=== PATIENT | female | born 1985 | race Caucasian/White ===

== ENCOUNTER 2019-05-27 09:30 | Outpatient (CLI) | payer OTHER, SELFPAY ==
[2019-05-27] VITALS (9 sets, daily range): BP systolic 121–144; BP diastolic 81–95; PULSE 58–69; RESP 16; TEMP 36.7; O2SAT 96–100
--- NOTE | 2019-05-27 09:32 | DI.RAD.S_ITS ---
PROCEDURE: PAIN C/T FACET INJ/BLK 1ST L INDICATIONS: SPONDYLOSIS FINDINGS: Fluoroscopic spot filming was performed to verify placement of spinal needles at the C5-C6, C6-C7 level(s), as labeled on the films. Appropriate location(s) of the needle tip(s) was confirmed by injection of iodinated contrast. Dictated by: Mohan Woods M.D. on 05/27/2019 at 12:23 Approved by: Mohan Woods M.D. on 05/27/2019 at 12:23
[2019-05-27] MEDS: MIDAZOLAM 5 MG/5 ML VIAL IV (11:19)
[2019-05-27] MEDS: fentaNYL 100 MCG/2 ML INJ 50 MCG IV (11:19)
[2019-05-27] MEDS: BUPIVACAINE 0.5% (PF) VIAL 2 ML INJ (11:29)
[2019-05-27] MEDS: IOPAMIDOL 15 ML VIAL 3 ML INJ (11:29)
[2019-05-27] MEDS: DEXAMETHASONE 10 MG/ML VIAL 20 MG INJ (11:30)
--- NOTE | 2019-05-27 11:31 | PC.NURSE ---
ASSISTING PT OFF TABLE AND TRANSPORTING TO POST PROC AREA IN STABLE CONDITION. PASSING RN CARE OF PT OFF TO RORY Paulino RN.
--- NOTE | 2019-05-27 11:37 | P.PCN_ITS ---
Procedures Date/Time Date of procedure: 05/27/19 Time of procedure: 11:37 General Procedure description: PREOP DIAGNOSIS 1. FACET ARTHROPATHY 2. AXIAL NECK PAIN POST OP DIAGNOSIS 1. FACET ARTHROPATHY 2. AXIAL NECK PAIN PROCEDURES 1. FLUOROSCOPICALLY GUIDED, CONTRAST-CONTROLLED RIGHT C5/6 AND C6/7 FACET JOINT INJECTIONS WITH CONSCIOUS SEDATION. PHYSICIAN: Gigi Ly, DO INDICATIONS Maria R is referred by Dr. Alexander for treatment of Axial Neck Pain DESCRIPTION OF PROCEDURE Fluoroscopically guided, contrast-controlled right C5/6 and C6/7 facet joint injections with conscious sedation. Following review of allergy and review of potential side effects and complications, including, but not necessarily limited to, infection, allergic reaction, local tissue breakdown, stroke, temporary or permanent nerve injury and paralysis, the patient indicated that the patient understood and agreed to proceed. An informed consent document was signed by the patient, witnessed by a nurse, and placed in the patient's chart. Additionally, other treatment options including medications, modalities, and physical therapy were reviewed with the patient. After review of previous anaesthesic history and IV conscious sedation the pa tient was deemed safe to proceed with todays procedure with IV conscious sedation as ASA class II designation. Safety time-out was performed to confirm patient ID, procedure to be performed and site of procedure. IV sedation was accomplished with a combination of 1mg of Versed and 50mcg of Fentanyl was administered by the RN after DO order, titrated to patient comfort during the course of the procedure while the patient remained responsive to all verbal commands In the prone position, following sterile prep and drape of the cervical spine region, the posterior aspect of the right C5/6 and C6/7 facet joints were identified fluoroscopically. The skin was anesthetized via a 25-gauge 1.5-inch needle with 1% lidocaine solution into the corresponding facet joints. At this point, a 25-gauge 2.5-inch spinal needle was atraumatically introduced and advanced under fluoroscopic guidance into the corresponding facet joints. Following negative aspiration, injections of approximately 0.2-cc of Isovue 200 confirmed interarticular placement without vascular uptake. At this point, a total of 1 cc including 0.5 cc or 5 mg of dexamethasone combined with 0.5 cc of 0.5% marcaine solution was injected without complication into each of the corresponding facet joints. The procedure tolerated the procedure well without signs or symptoms of complications prior to transfer to the recovery area continued monitoring without incident. The patient was then transferred to the recovery area where they were observed for an appropriate period of time after the injection. The patient reported a VAS score of 7 prior to the procedure and a post- procedure VAS of 0. Total Fluoroscopy Time: 14 seconds Total Conscious Sedation Time: 24 min POST OP INSTRUCTIONS They were provided a Pain Log to continue to record their response to the target-specific procedure prior to their follow-up visit with their referring physician. Additionally, specific post-injection care instructions and a c ontact number to our office were provided if concerns arise regarding possible complications associated with the procedure are suspected. Gigi Ly DO Complications: none
--- NOTE | 2019-05-27 12:29 | PC.NURSE ---
Post procedure discharge note: Patient arrived at 1140 via wheelchair. Alert and able to transfer from w/c to recliner with stand by assist. Handoff report received from Delores Degroot RN. VSS on arrival. No complaints of pain, unusual numbness or tingling. Discharge instructions reviewed with mother and patient with good understanding. Discharged to home, w/c to car at 1205
== END 2019-05-27 12:05 | disposition home or self-care (01) ==
PROVIDERS: Family Provider Social Worker Clinical; PCP Social Worker Clinical; Visit Provider Physical Medicine & Rehabilitation
DX: M47.812 Spondylosis without myelopathy or radiculopathy, cervical region (principal); M54.2 Cervicalgia
CPT/HCPCS: 64490; 64491; 99152; J1100; J2250; J3010